=== PATIENT | male | born 1960 | race Caucasian/White ===

== ENCOUNTER 2017-09-18 15:49 | Emergency (ER) | payer OTHER ==
--- NOTE | 2017-09-18 15:59 | PDOC ---
Rapid Medical Evaluation Chief Complaint: Chest Pain Time Seen by Provider: 09/18/17 15:59 Medical Evaluation: Allergies Allergy/AdvReac Type Severity Reaction Status Date / Time No Known Allergies Allergy Verified 09/18/17 15:58 09/18/17 15:59 57 year old male with IDDM and HIV on HAART (VL undetectable) presenting with 3 days of chest pain, started at rest. Describes pain as "tight." Has some associated SOB. Has bilat LE edema and pain which is chronic; scheduled for procedure to "clean the veins" on 09/27. Cough productive of "green stuff." EKG: Sinus tachycardia rate 102bpm. Alert, oriented, no distress. RRR, S1/S2, mild tachycardia. Lungs CTAB. Calves 1+ edema, very tender. -EKG -CXR -Labs and blood cultures -Duplex LE u/s bilaterally -To Main ED for further evaluation
[2017-09-18 16:02] VITALS: BP 99/75; PULSE 106; TEMP 98.1; BMI 21.2
[2017-09-18 17:13] LABS: BASO % 1.2 % (0-2.0); EOS % 0.6 % (0-4.5); HEMATOCRIT 46.7 % (35.4-49); HEMOGLOBIN 15.5 GM/dL (11.7-16.9); LYMPH % 29.9 % (8-40); MCH 28.5 pg (25.7-33.7); MCHC 33.1 g/dl (32.0-35.9); MEAN CELL VOLUME 86.1 fl (80-96); MEAN PLT VOLUME 10.1 fl (7.5-11.1); MONO % 8.9 % (3.8-10.2); NEUT % 59.4 % (42.8-82.8); PLATELET COUNT 198 K/MM3 (134-434); RBC 5.42 M/mm3 (4.00-5.60); RDW 12.9 % (11.9-15.9); WHITE BLOOD COUNT 9.3 K/mm3 (4.0-10.0)
[2017-09-18 17:16] LABS: VENOUS PC02 34.2 mmHg (38-52); VENOUS PH 7.41 (7.32-7.42); VENOUS PO2 81.2 mmHg (28-48)
--- NOTE | 2017-09-18 17:22 | PDOC ---
History of Present Illness - General Chief Complaint: Chest Pain Stated Complaint: CHEST PAIN Time Seen by Provider: 09/18/17 15:59 - History of Present Illness Initial Comments: 57 year old male with IDDM and HIV on HAART (VL undetectable) presenting with 3 days of productive cough, anterior chest pain. Pt endorsing worsening productive cough with green sputum and worsening SOB with ambulation. He also endorses anterior left sided chest pain, worsened by deep breathing and palpation, with no radiation and relieving symptoms, described as tightness in quality. Pt states the pain and presentation are similar to one year ago when he was admitted to the hospital with PNA. Scheduled for procedure to "clean the veins" on 09/27. Pt does not follow with ID physician currently, but endorse compliance with HIV meds. No cardiac or pulmonary hx. No recent travel or sick contacts. Allergies: None Past surgical history: None Social History: Denies toxic habits PMD: unknown at this time 09/18/17 17:19 Past History - Past Medical History Allergies/Adverse Reactions: Allergies Allergy/AdvReac Type Severity Reaction Status Date / Time No Known Allergies Allergy Verified 09/18/17 15:58 - Suicide/Smoking/Psychosocial Hx Smoking History: Former smoker Have you smoked in the past 12 months: No Information on smoking cessation initiated: No Hx Alcohol Use: No Drug/Substance Use Hx: No Review of Systems - Review of Systems Comments:: GENERAL/CONSTITUTIONAL: +fatige, intermittent fever or chills. No weakness. HEAD, EYES, EARS, NOSE AND THROAT: No change in vision. No ear pain or discharge. No sore throat. CARDIOVASCULAR: + anterior chest pain, SOB on exertion. BL LE edema and pain in legs RESPIRATORY: +productive cough, No wheezing, or hemoptysis. GASTROINTESTINAL: No nausea, vomiting, diarrhea or constipation. GENITOURINARY: No dysuria, frequency, or change in urination. MUSCULOSKELETAL: No joint or muscle swelling or pain. No neck or back pain. SKIN: No rash NEUROLOGIC: No headache, vertigo, loss of consciousness, or change in strength/ sensation. ENDOCRINE: No increased thirst. No abnormal weight change HEMATOLOGIC/LYMPHATIC: No anemia, easy bleeding, or history of blood clots. ALLERGIC/IMMUNOLOGIC: No hives or skin allergy. 09/18/17 17:19 *Physical Exam - Vital Signs Last Vital Signs Temp Pulse Resp BP Pulse Ox 98.1 F 106 H 18 99/75 95 09/18/17 15:58 09/18/17 15:58 09/18/17 15:58 09/18/17 15:58 09/18/17 15:58 - Physical Exam Comments: GENERAL: Middle aged man, Awake, alert, and fully oriented, in no acute distress, cachectic HEAD: No signs of trauma, normocephalic, atraumatic EYES: PERRLA, EOMI, sclera anicteric, conjunctiva clear ENT: Auricles normal inspection, hearing grossly normal, nares patent, oropharynx clear without exudates. Moist mucosa NECK: Normal ROM, supple, no lymphadenopathy, JVD, or masses LUNGS: Decreased air entry at bases. No distress, speaks full sentences, mild cough. HEART: Tachycardia, normal S1 and S2, no murmurs, rubs or gallops, peripheral pulses normal and equal bilaterally. ABDOMEN: Soft, nontender, normoactive bowel sounds. No guarding, no rebound. No masses EXTREMITIES : 1+ pitting edema BL, TTP. Normal inspection, Normal range of motion, No clubbing or cyanosis. NEUROLOGICAL: Cranial nerves II through XII grossly intact. Normal speech, normal gait, no focal sensorimotor deficits SKIN: Warm, Dry, normal turgor, no rashes or lesions noted 09/18/17 17:19 Moderate Sedation - Procedure Monitoring Vital Signs: Vital Signs Temp Pulse Resp BP Pulse Ox 98.1 F 106 H 18 99/75 95 09/18/17 15:58 09/18/17 15:58 09/18/17 15:58 09/18/17 15:58 09/18/17 15:58 ED Treatment Course - LABORATORY CBC & Chemistry Diagram: 09/18/17 17:10 09/18/17 17:10 - ADDITIONAL ORDERS Additional order review: Laboratory Results 09/18/17 17:10 VBG pH 7.41 POC VBG pCO2 34.2 L POC VBG pO2 81.2 H Mixed VBG HCO3 24.6 09/18/17 17:10 RBC 5.42 MCV 86.1 MCHC 33.1 RDW 12.9 MPV 10.1 Neutrophils % 59.4 Lymphocytes % 29.9 Monocytes % 8.9 Eosinophils % 0.6 Basophils % 1.2 Medical Decision Making - Medical Decision Making 57 year old male with IDDM and HIV on HAART (VL undetectable) presenting with 3 days of productive cough, anterior chest pain. Pt endorsing worsening productive cough with green sputum and worsening SOB with ambulation. DDX includes URI, PNA, ACS, GERD, costochondritis, MSK strain from cough. Plan: - CBC, cmp, trops, coags - CXR, EKG - Blood, sputum cultures - pulse ox, cardiac monitoring - O2; robitussin for cough; consider empiric abx EKG with peaked T-waves in v2-v3, will follow up BMP. Sign out given to Dr. Macias at the end of shift. Will f/u remaining studies and likely admit to hospital for observation . 09/18/17 19:58 *DC/Admit/Observation/Transfer - Referrals Referrals: ON STAFF,NOT [Primary Care Provider] - - Patient Instructions - Post Discharge Activity
[2017-09-18 17:23] LABS: URINE APPEARANCE CLEAR; URINE BILIRUBIN NEGATIVE (<2.0 mg/dL); URINE BLOOD NEGATIVE (NEGATIVE); URINE COLOR STRAW; URINE GLUCOSE (UA) 3+ (NEGATIVE); URINE KETONE NEGATIVE (NEGATIVE); URINE LEUK ESTERASE NEGATIVE (NEGATIVE); URINE NITRITE NEGATIVE (NEGATIVE); URINE PROTEIN NEGATIVE (NEGATIVE); URINE UROBILINOGEN NEGATIVE mg/dL (0.2-1.0)
[2017-09-18 17:39] LABS: INR 0.98 (0.82-1.09); PROTHROMBIN TIME (PATIENT) 11.1 SEC (9.7-13.0)
[2017-09-18 17:42] LABS: ACTIVATED PTT 33.3 SECONDS (26.9-34.4)
[2017-09-18 17:50] LABS: ALBUMIN 4.6 g/dl (3.4-5.0); ANION GAP 6 (8-16); BLOOD UREA NITROGEN 15 mg/dL (7-18); CALCIUM 9.9 mg/dL (8.5-10.1); CHLORIDE 96 mmol/L (98-107); CO2 27 mmol/L (21-32); CREATININE 1.1 mg/dL (0.7-1.3); POTASSIUM 4.7 mmol/L (3.5-5.1); SGOT/AST 12 U/L (15-37); SGPT/ALT 16 U/L (12-78); SODIUM 129 mmol/L (136-145); TOT PROT 8.5 g/dl (6.4-8.2)
[2017-09-18 18:02] LABS: ALK PHOS 186 U/L (45-117); BILIRUBIN,TOTAL 0.8 mg/dL (0.2-1.0)
[2017-09-18 18:06] LABS: GLUCOSE,RANDOM 461 mg/dL (74-106)
[2017-09-18] MEDS ORDERED: INSULIN (NOVOLOG) ASPART 100 UNITS/ML 10ML VIAL SQ ONE (18:08)
[2017-09-18] MEDS ORDERED: SODIUM CHLORIDE 1,000 ML IV SCH (18:30)
--- NOTE | 2017-09-18 18:48 | PDOC ---
Attending Attestation - Resident Resident Name: Alban Saleh - ED Attending Attestation I have performed the following: I have examined & evaluated the patient, The case was reviewed & discussed with the resident, I agree w/resident's findings & plan, Exceptions are as noted - HPI HPI: 09/18/17 18:47 57 YO MALE P/W 3 DAYS OG SYMPTOMS-FEVER,CHILLS,PLEURETIC CHEST PAIN AND PRODUCTIVE COUGH - Medical Decision Making 09/18/17 22:45 CXR " RT PERIHILAR INFILTRATES, WILL START ANTIBIOTICS PT HAS CLEAR LUNGS,NEG TROP X 2, AND ALREADY HAS A PLANNED APPT W REGULAR PHYSICIAN TOMMORROW <Leyla Urias - Last Filed: 09/18/17 22:46> - HPI HPI: 09/18/17 22:49 The patient is 57 year old male with past medical history of Diabetes (Type 1) and HIV presents to the emergency department with chest pain and cough for the past 3 days. The patient reports he's been experiencing productive cough with green sputum and dyspnea on exertion. The patient also experiencing musculoskeletal chest pain, aggravated by deep breathing. The patient reports he had an appoint with his PCP September 20 and on September 27 he had an appointment for vein cleaning. Denies nausea or vomiting. Denies headache, weakness or loss of sensation. Denies dysuria, hematuria, frequency or urgency to urinate. Allergies: NKDA Social history: None reported - Physicial Exam PE: 09/18/17 22:53 GENERAL: slender Well-appearing, well-nourished. No apparent distress. HEENT: Supple. Normocephalic, atraumatic. PERRL, EOM intact. CARDIOVASCULAR: Normal S1, S2. Regular rate and rhythm. PULMONARY: no wheezing or crackles heard Clear to auscultation bilaterally. ABDOMEN: Soft, non-distended, non-tender. EXTREMITIES: Normal ROM in all four extremities. No gross deformities. SKIN: Warm, dry. No rash NEUROLOGICAL: No focal neurological deficits. - Medical Decision Making 09/18/17 22:53 Documentation prepared by Deana Nash, acting as medical physicist for Leyla Urias MD. <Deana Nash - Last Filed: 09/18/17 22:53>
--- NOTE | 2017-09-18 19:15 | PDOC ---
*Physical Exam - Vital Signs Last Vital Signs Temp Pulse Resp BP Pulse Ox 98.1 F 106 H 18 99/75 95 09/18/17 15:58 09/18/17 15:58 09/18/17 15:58 09/18/17 15:58 09/18/17 15:58 <AdonayLeyla Brandie - Last Filed: 09/18/17 22:52> - Vital Signs Last Vital Signs Temp Pulse Resp BP Pulse Ox 98.1 F 106 H 18 99/75 95 09/18/17 15:58 09/18/17 15:58 09/18/17 15:58 09/18/17 15:58 09/18/17 15:58 <Shadi Macias - Last Filed: 09/18/17 23:18> ED Treatment Course - LABORATORY CBC & Chemistry Diagram: 09/18/17 17:10 09/18/17 17:10 - ADDITIONAL ORDERS Additional order review: Laboratory Results 09/18/17 09/18/17 09/18/17 21:40 17:10 17:10 PT with INR INR PTT (Actin FS) VBG pH POC VBG pCO2 POC VBG pO2 Mixed VBG HCO3 Sodium 129 L Potassium 4.7 Chloride 96 L Carbon Dioxide 27 Anion Gap 6 L BUN 15 Creatinine 1.1 Creat Clearance w eGFR > 60 Random Glucose 461 H* Lactic Acid 1.7 Calcium 9.9 Total Bilirubin 0.8 AST 12 L ALT 16 Alkaline Phosphatase 186 H Creatine Kinase 70 Troponin I < 0.02 Total Protein 8.5 H Albumin 4.6 Urine Color Urine Appearance Urine pH Ur Specific [place] Urine Protein Urine Glucose (UA) Urine Ketones Urine Blood Urine Nitrite Urine Bilirubin Urine Urobilinogen Ur Leukocyte Esterase 09/18/17 09/18/17 09/18/17 17:10 17:10 17:10 PT with INR 11.10 INR 0.98 PTT (Actin FS) 33.3 VBG pH 7.41 POC VBG pCO2 34.2 L POC VBG pO2 81.2 H Mixed VBG HCO3 24.6 Sodium Potassium Chloride Carbon Dioxide Anion Gap BUN Creatinine Creat Clearance w eGFR Random Glucose Lactic Acid Calcium Total Bilirubin AST ALT Alkaline Phosphatase Creatine Kinase Troponin I Total Protein Albumin Urine Color Straw Urine Appearance Clear Urine pH 5.0 Ur Specific [place] 1.036 H Urine Protein Negative Urine Glucose (UA) 3+ H Urine Ketones Negative Urine Blood Negative Urine Nitrite Negative Urine Bilirubin Negative Urine Urobilinogen Negative Ur Leukocyte Esterase Negative 09/18/17 16:50 PT with INR INR PTT (Actin FS) VBG pH POC VBG pCO2 POC VBG pO2 Mixed VBG HCO3 Sodium Potassium Chloride Carbon Dioxide Anion Gap BUN Creatinine Creat Clearance w eGFR Random Glucose Lactic Acid Calcium Total Bilirubin AST ALT Alkaline Phosphatase Creatine Kinase Troponin I < 0.02 Total Protein Albumin Urine Color Urine Appearance Urine pH Ur Specific [place] Urine Protein Urine Glucose (UA) Urine Ketones Urine Blood Urine Nitrite Urine Bilirubin Urine Urobilinogen Ur Leukocyte Esterase 09/18/17 17:10 RBC 5.42 MCV 86.1 MCHC 33.1 RDW 12.9 MPV 10.1 Neutrophils % 59.4 Lymphocytes % 29.9 Monocytes % 8.9 Eosinophils % 0.6 Basophils % 1.2 - Medications Given in the ED: ED Medications Discontinued Medications Generic Name Dose Route Start Last Admin Trade Name Freq PRN Reason Stop Dose Admin Insulin Aspart 8 units 09/18/17 18:08 09/18/17 22:25 Novolog Vial SQ 09/18/17 18:09 8 units ONCE ONE Administration Protocol Insulin Detemir 27 units 09/18/17 20:54 09/18/17 22:26 Levemir Vial SQ 09/18/17 20:55 27 unit ONCE ONE Administration <Leyla Urias - Last Filed: 09/18/17 22:52> - LABORATORY CBC & Chemistry Diagram: 09/18/17 17:10 09/18/17 17:10 - ADDITIONAL ORDERS Additional order review: Laboratory Results 09/18/17 09/18/17 09/18/17 17:10 17:10 17:10 PT with INR INR PTT (Actin FS) VBG pH 7.41 POC VBG pCO2 34.2 L POC VBG pO2 81.2 H Mixed VBG HCO3 24.6 Sodium 129 L Potassium 4.7 Chloride 96 L Carbon Dioxide 27 Anion Gap 6 L BUN 15 Creatinine 1.1 Creat Clearance w eGFR > 60 Random Glucose 461 H* Lactic Acid 1.7 Calcium 9.9 Total Bilirubin 0.8 AST 12 L ALT 16 Alkaline Phosphatase 186 H Troponin I Total Protein 8.5 H Albumin 4.6 Urine Color Urine Appearance Urine pH Ur Specific [place] Urine Protein Urine Glucose (UA) Urine Ketones Urine Blood Urine Nitrite Urine Bilirubin Urine Urobilinogen Ur Leukocyte Esterase 09/18/17 09/18/17 09/18/17 17:10 17:10 16:50 PT with INR 11.10 INR 0.98 PTT (Actin FS) 33.3 VBG pH POC VBG pCO2 POC VBG pO2 Mixed VBG HCO3 Sodium Potassium Chloride Carbon Dioxide Anion Gap BUN Creatinine Creat Clearance w eGFR Random Glucose Lactic Acid Calcium Total Bilirubin AST ALT Alkaline Phosphatase Troponin I < 0.02 Total Protein Albumin Urine Color Straw Urine Appearance Clear Urine pH 5.0 Ur Specific [place] 1.036 H Urine Protein Negative Urine Glucose (UA) 3+ H Urine Ketones Negative Urine Blood Negative Urine Nitrite Negative Urine Bilirubin Negative Urine Urobilinogen Negative Ur Leukocyte Esterase Negative 09/18/17 17:10 RBC 5.42 MCV 86.1 MCHC 33.1 RDW 12.9 MPV 10.1 Neutrophils % 59.4 Lymphocytes % 29.9 Monocytes % 8.9 Eosinophils % 0.6 Basophils % 1.2 <Shadi Macias - Last Filed: 09/18/17 23:18> Medical Decision Making - Medical Decision Making 09/18/17 19:14 The patient was signed out to me by Dr. Saleh, day team. The patient is a 57M with a PMH of HIV who presents with pleuritic CP and cough x 3 days. Pending CXR. Likely dispo is admission d/t immunocompromised state and likely URI vs PNA. 09/18/17 20:54 Pending official CXR read. Preliminary read shows a small questionable bronchiole on the L [place]. Will wait for official read. Will give night dose of insulin dose 27 Levemir (pt takes Lantus - confirmed w/ pharmacy). 09/18/17 21:42 Repeat troponin sent. 09/18/17 23:17 Repeat troponin negative. Attending discussed case with radiologist. Will treat as PNA and d/c home with abx. Attending d/c pt. <Shadi Macias - Last Filed: 09/18/17 23:18> *DC/Admit/Observation/Transfer <Leyla Urias - Last Filed: 09/18/17 22:52> <Shadi Macias - Last Filed: 09/18/17 23:18> Diagnosis at time of Disposition: Pneumonia Qualifiers: Pneumonia type: due to unspecified organism Laterality: right Lung location: middle lobe of lung Qualified Code(s): J18.1 - Lobar pneumonia, unspecified organism - Discharge Dispostion Disposition: HOME Condition at time of disposition: Stable - Prescriptions Prescriptions: levoFLOXacin [Levaquin -] 500 mg PO DAILY #10 tablet - Referrals Referrals: ON STAFF,NOT [Primary Care Provider] - - Patient Instructions Printed Discharge Instructions: DI for Cough -- Adult, DI for Musculoskeletal Pain Additional Instructions: PLEASE [employer] OFFICER YOUR ANTIBIOTICS AT YOUR PHARMACY ON [address] YOU NEED TO FOLLOWUP WITH YOUR DOCTOR SOON POSSIBLE - Post Discharge Activity
[2017-09-18] MEDS ORDERED: INSULIN DETEMIR 100 UNITS/ML MDV SQ ONE ×3 (20:54→23:14)
[2017-09-18] MEDS ORDERED: INSULIN (NOVOLOG) ASPART 100 UNITS/ML 10ML VIAL ONE (21:53)
[2017-09-18] MEDS ORDERED: ACETAMINOPHEN WITH CODEINE 300MG/30MG TABLET PO ONE (23:03)
[2017-09-18] MEDS ORDERED: ACETAMINOPHEN 325 MG TABLET (FP) ONE (23:08)
[2017-09-18] MEDS ORDERED: ACETAMINOPHEN WITH CODEINE 300MG/30MG TABLET ONE (23:09)
[2017-09-19] MEDS ORDERED: levoFLOXacin 750 MG TABLET PO SCH (10:00)
--- NOTE | 2017-09-19 16:20 | EKG ---
Test Reason : Blood Pressure : / mmHG Vent. Rate : 102 BPM Atrial Rate : 102 BPM P-R Int : 122 ms QRS Dur : 080 ms QT Int : 340 ms P-R-T Axes : 074 056 036 degrees QTc Int : 443 ms SINUS TACHYCARDIA POSSIBLE LEFT ATRIAL ENLARGEMENT BORDERLINE ECG NO PREVIOUS ECGS AVAILABLE Confirmed by MD Anup, Guicho ([id number]) on 09/19/2017 4:19:53 PM Referred By: Confirmed By:Guicho Hebert MD
== END 2017-09-18 23:58 | disposition home or self-care (01) ==
LOC: JER 15:49
PROC: 3E013VG Introduction of Insulin into Subcutaneous Tissue, Percutaneous Approach (ICD-10-PCS; principal; 2017-09-18)
PROC: 3E013VG Introduction of Insulin into Subcutaneous Tissue, Percutaneous Approach (ICD-10-PCS; 2017-09-18)
DX: J18.1 Lobar pneumonia, unspecified organism (principal); E10.65 Type 1 diabetes mellitus with hyperglycemia; Z79.4 Long term (current) use of insulin; Z21 Asymptomatic human immunodeficiency virus [HIV] infection status
CPT/HCPCS: 36415; 71045-TC-FY; 80053; 81003; 82550; 82803; 82962; 83605; 84484; 85025; 85610; 85730; 87040; 87086; 93005; 93010; 93970-TC; 96372; 99284-25; J7030